=== PATIENT | female | born 1955 | race Caucasian/White ===

== ENCOUNTER → 2019-04-27 | Outpatient (CLI) | payer OTHER ==
[~2019-04-27] MED LIST: ACYC800 PO; CYCL10; GABA300; HYDCHL25; LEVSOD50; NABU500; OXYACE5T PO; PHENO30; PRED20 PO
== END | disposition home or self-care (01) ==
LOC: LAB SHORT 10:36 → LAB EV 10:36
DX: R31.9 Hematuria, unspecified (principal)
CPT/HCPCS: 87086